=== PATIENT | female | born 1990 | race Caucasian/White ===

== ENCOUNTER 2021-10-13 03:43 | Emergency (ER) | payer MEDICAID, SELFPAY ==
[2021-10-13] VITALS (7 sets, daily range): BP systolic 124–159; BP diastolic 70–102; PULSE 74–107; RESP 15–18; TEMP 36.3–36.6; O2SAT 97–99; BMI 39.3
--- NOTE | 2021-10-13 03:45 | EX.ED.DYSGE1 ---
HPI History of Present Illness Chief Complaint: Suicidal Narrative Narrative: 31-year-old female here for suicidal ideation. History of schizophrenia, bipolar disorder and panic disorder. The patient states everything is corrupt everyone is after me. She states she is not on drugs. She denies any physical complaints. Denies any auditory visualizations. Denies any suicidal or homicidal ideation to me. Per police officers patient left her penitentiary and was found lying on the ground threatening to kill herself. Patient denies any attempt at hurting herself, cutting, ingestion of any kind. Denies any drug use at this time Old chart reviewed: Currently on haloperidol, lithium, Seroquel, trazodone, sertraline [facility] Medical History (Updated 10/13/21 @ 03:49 by Thierry Bear) Antisocial personality disorder Bipolar disorder Borderline personality disorder Polysubstance abuse Post traumatic stress disorder (PTSD) Schizophrenia Self mutilating behavior Suicidal ideation Suicide attempt by hanging Home Medications carbamazepine 200 mg tablet 600 mg PO QHS 10/13/21 [History Last Taken Unknown] chlorpromazine 50 mg tablet 50 mg PO QHS 10/13/21 [History Last Taken Unknown] clonazepam 1 mg tablet 1 mg PO DAILY PRN Anxiety 10/13/21 [History Last Taken Unknown] doxepin 150 mg capsule 150 mg PO QHS 10/13/21 [History Last Taken Unknown] Allergy/AdvReac Type Severity Reaction Status Date / Time alprazolam Allergy PT UNSURE Verified 10/13/21 03:45 OF REACTION lorazepam Allergy PT UNSURE Verified 10/13/21 03:45 OF REACTION Surgical History no surgical history Social History Smoking Status: Current every day smoker tobacco type: cigarettes ROS ROS ED Eyes Eyes: Denies other visual disturbances ENT ENT ED: Denies ear pain Cardiovascular Cardiovascular: Denies chest pain Respiratory/Chest Respiratory/Chest: Denies dyspnea Gastrointestinal Gastrointestinal: Denies abdominal pain Genitourinary Genitourinary ED: Denies dysuria Musculoskeletal Musculoskeletal: Denies joint pain Integumentary Denies rash Neurologic Neurologic: Denies dizziness, focal weakness, numbness, syncope or weakness Psychiatric Psychiatric: Denies homicidal ideation or suicidal ideation EXAM Physical Exam Narrative Exam Narrative: Nursing triage notes reviewed, Vital signs reviewed Constitutional: please see mdm HENT: MMM Eyes: Pupils equal round and reactive to light, Extraocular muscles intact Neck: No stridor, no JVD, full neck ROM Lungs: Clear to auscultation, No wheezing or rales. No increased work of breathing, no conversational dyspnea, no accessory muscle use, no nasal flaring. No respiratory distress noted Heart: Regular rate and rhythm, No murmurs, No rubs and No gallops, 2+ distal pulses (radial, femoral, posterior tibial) in all extremities Abdomen: Soft, there is no tenderness, rigidity, rebound or guarding, no obvious peritoneal signs, no palpable pulsatile abdominal masses, no auscultated abdominal bruit : No CVAT Extremities: No edema Neuro: No focal neurological deficits, cranial nerves II through XII intact, 5/5 strength in all extremities. Intact sensation to light touch in all extremities, 2+ reflexes bilateral patella dens. Normal gait. No ataxia. Skin: Well-healed, old appearing ligature burnett on the neck, self-injurious burnett bilateral upper extremities Psych: Pressured speech, tangential thoughts, appears manic Const Vital Signs: 10/13/21 03:45 10/13/21 05:30 10/13/21 05:59 Temperature 97.4 F L 97.4 F L Temperature Source Temporal Temporal Pulse Rate 106 H 74 Respiratory Rate 18 16 15 Blood Pressure 159/102 H 124/76 H Blood Pressure Mean 121 92 Pulse Ox 97 99 Oxygen Delivery Method Room Air Room Air 10/13/21 06:14 Temperature Temperature Source Pulse Rate Respiratory Rate 17 Blood Pressure 134/80 H Blood Pressure Mean 98 Pulse Ox 97 Oxygen Delivery Method Room Air MDM MDM MDM Narrative Medical decision making narrative: 31-year-old female with pmhx significant for bipolar disorder, schizophrenia presents with suicidal ideation with plan. She appears decompensated and manic. Patient was initially mildly tachycardic otherwise hemodynamically stable and afebrile. Exam was unremarkable. Obtain medical clearance labs including urine tox screen, alcohol, EKG. EKG showed no evidence of arrhythmia or other abnormality. Labs are unremarkable for intoxication or other abnormality that would preclude further psychiatric evaluation. Gave the patient oral Haldol, Ativan, Benadryl to treat her manic state with improvement in agitation. The patient is medically cleared. We will communicate with our behavioral health specialist to further ascertain if the patient requires admission versus discharge. Patient was turned over to a.m. physician in stable, calm condition pending behavioral health evaluation and final disposition Lab Data Attestation: I reviewed the patient's lab results. Lab results narrative: CBC without leukocytosis, severe anemia, no thrombocytopenia. BMP without evidence of significant electrolyte abnormalities, no anion gap, no acute kidney injury. Urine tox screen negative Urine negative EtOH negative Acetaminophen, salicylate level negative COVID negative Labs: Laboratory Results - last 24 hr 10/13/21 10/13/21 10/13/21 03:55 04:12 04:12 WBC 10.9 RBC 4.62 Hgb 12.7 Hct 40.8 MCV 88.3 MCH 27.5 MCHC 31.1 L RDW Std Deviation 45.8 H RDW Coeff of Adis 14.3 Plt Count 260 MPV 10.6 Immature Gran % (Auto) 0.600 Neut % (Auto) 68.1 Lymph % (Auto) 23.8 Leslie % (Auto) 6.2 Eos % (Auto) 0.9 Baso % (Auto) 0.4 Absolute Neuts (auto) 7.4 Absolute Lymphs (auto) 2.59 Nucleated RBC % 0 Sodium 137 Potassium 3.9 Chloride 109 H Carbon Dioxide 21.0 Anion Gap 7 BUN 11 Creatinine 0.54 L Estim Creat Clear Calc 121.58 Est GFR (MDRD) Af Amer 171 Est GFR (MDRD) Non-Af 141 BUN/Creatinine Ratio 20.4 H Glucose 108 H Calcium 8.5 Serum , Qual Salicylates Urine Opiates Screen NEGATIVE Urine Methadone Screen NEGATIVE Acetaminophen Ur Barbiturates Screen NEGATIVE Ur Phencyclidine Scrn NEGATIVE Ur Amphetamines Screen NEGATIVE MDMA (Ecstasy) Screen NEGATIVE U Benzodiazepines Scrn NEGATIVE Urine Cocaine Screen NEGATIVE U Cannabinoids Screen NEGATIVE Ur Drug Screen Comment Ethyl Alcohol 10/13/21 10/13/21 10/13/21 04:12 04:12 04:12 WBC RBC Hgb Hct MCV MCH MCHC RDW Std Deviation RDW Coeff of Adis Plt Count MPV Immature Gran % (Auto) Neut % (Auto) Lymph % (Auto) Leslie % (Auto) Eos % (Auto) Baso % (Auto) Absolute Neuts (auto) Absolute Lymphs (auto) Nucleated RBC % Sodium Potassium Chloride Carbon Dioxide Anion Gap BUN Creatinine Estim Creat Clear Calc Est GFR (MDRD) Af Amer Est GFR (MDRD) Non-Af BUN/Creatinine Ratio Glucose Calcium Serum , Qual NEGATIVE Salicylates 4.1 Urine Opiates Screen Urine Methadone Screen Acetaminophen < 2.0 L Ur Barbiturates Screen Ur Phencyclidine Scrn Ur Amphetamines Screen MDMA (Ecstasy) Screen U Benzodiazepines Scrn Urine Cocaine Screen U Cannabinoids Screen Ur Drug Screen Comment Ethyl Alcohol 3.0 EKG Initial EKG: Comments: Normal sinus rhythm, normal axis, normal intervals, ST or T wave changes to suggest myocardial ischemia, no evidence of WPW, Brugada, ARVD. Discharge Plan Triage Chief Complaint: Suicidal ED Provider: Fidel Mazariegos Dx/Rx/DC Orders Prescriptions: No Action clonazepam 1 mg Tablet 1 mg PO DAILY PRN (Reason: Anxiety) carbamazepine 200 mg Tablet 600 mg PO QHS chlorpromazine 50 mg Tablet 50 mg PO QHS doxepin 150 mg Capsule 150 mg PO QHS Primary Care Provider: Care Physician,No Primary Referrals: Care Physician,No Primary [Primary Care Provider] -
--- NOTE | 2021-10-13 03:57 | EKG12_ITS ---
Test Reason : MEDICAL CLEARANCE Blood Pressure : / mmHG Vent. Rate : 091 BPM Atrial Rate : 091 BPM P-R Int : 172 ms QRS Dur : 086 ms QT Int : 374 ms P-R-T Axes : 063 044 057 degrees QTc Int : 460 ms Normal sinus rhythm Normal ECG Confirmed by NERISSA PENNY, ДМИТРИЙ ([id number]), continuity editor ROYAL HANNA ([id number]) on 10/14/2021 2:12:08 PM Referred By: TONY Confirmed By:TIARA MULTANI MD
[2021-10-13] MEDS: Haloperidol 5 MG Tablet PO (04:03)
[2021-10-13] MEDS: LORazepam 1 MG Tablet 2 MG PO (04:03)
[2021-10-13] MEDS: DiphenhydrAMINE 25 MG Capsule 50 MG PO (04:12)
[2021-10-13 04:22] LABS: Absolute Lymphocyte Count 2.59 X10^3/uL (0.83-4.51); Absolute Neutrophil Count 7.4 X10^3/uL (2.0-7.7); Basophil# 0.04 X10^3/uL; Basophil% 0.4 % (0-1); Eosinophils% 0.9 % (0-5); Hematocrit 40.8 % (37-47); Hemoglobin 12.7 g/dL (12.0-15.0); Lymphocyte # 2.59 X10^3/ul (0.83-4.51); Lymphocyte % 23.8 % (19-41); Mean Corp Hgb Conc 31.1 g/dL (32-36); Mean Corpuscular Hgb 27.5 pg (27.0-32.0); Mean Corpuscular Volume 88.3 fL (81-99); Mean Platelet Vol. 10.6 fl (6.2-12.0); Monocyte# 0.67 X10^3/uL; Monocyte% 6.2 % (0-10); NRBC Flagged by Analyzer 0 % (0-5); Neutrophil # 7.42 X10^3/uL (2.7-7.7); Neutrophil % 68.1 % (47-70); Platelet Count 260 K/mm3 (150-450); RBC Distribution Width CV 14.3 % (11.6-14.6); RBC Distribution Width SD 45.8 fl (35.1-43.9); Red Blood Count 4.62 M/mm3 (4.2-5.4); White Blood Count 10.9 K/mm3 (4.4-11.0)
[2021-10-13 04:37] LABS: Anion Gap 7 (5-15); BUN 11 mg/dL (7-18); BUN/Creat Ratio 20.4 RATIO (10-20); Calcium,Total 8.5 mg/dL (8.5-10.1); Chloride 109 mmol/L (98-107); Creatinine, Serum 0.54 mg/dL (0.55-1.02); EST Glomerular Filtration Rate 141 mL/min (>60); Est Glom Filt Rate - Afr Amer 171 mL/min (>60); Estimated Creatinine Clearance 121.58 ml/min; Glucose 108 mg/dL (74-106); Potassium 3.9 mmol/L (3.5-5.1); Sodium Level 137 mmol/L (136-145)
[2021-10-13 04:39] LABS: Amphetamine Urine VISTA NEGATIVE (<1000 ng/mL); Barbiturate Urine VISTA NEGATIVE (< 200 ng/mL); Benzodiazepine Urine VISTA NEGATIVE (< 200 ng/mL); Cocaine Urine VISTA NEGATIVE (< 300 ng/mL); Ecstacy Urine VISTA NEGATIVE (< 500 ng/mL); Methadone Urine VISTA NEGATIVE (< 300 ng/mL); PCP Urine VISTA NEGATIVE (< 25 ng/mL); THC Urine VISTA NEGATIVE (< 50 ng/mL); Vista UDS pH Range 7
[2021-10-13 04:48] LABS: Internal QC Validated? YES +Cl - CLEAR BKGD; Pregnancy, Serum, hCG Quali. NEGATIVE Negative
[2021-10-13 05:00] LABS: Acetaminophen (Tylenol) Level < 2.0 ug/mL (10.0-30.0); Salicylate 4.1 mg/dL (2.8-20.0)
--- NOTE | 2021-10-13 05:05 | NURSING ---
CALLED CRISIS AT [phone]
--- NOTE | 2021-10-13 05:22 | ED.RN ---
crisis aware of the patient at this time, chart faxed to them at this time
--- NOTE | 2021-10-13 06:01 | ED.RN ---
Phone number for esvin in chart. She is a person who the patient trusts at the long term and patient wanted to be sure we had the number, at the long term.
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
--- NOTE | 2021-10-13 14:05 | CM.ED ---
Patient was inquiring about leaving and TRAVIS met with her and explained that patient is pink slip and can not leave. Patient stated that this continuity writer was setting her up an she is not going back to [facility]. Patient continued to esculate however, the agitation was based on paranoia related to this continuity writer setting her up thus SW left the room. Patient had indicated that her belongings were at the fdc and she wanted her belongings. TRAVIS advised that this continuity writer will call about her belongings. TRAVIS called Aundrea at [facility] and left voice mail message. TRAVIS received call back from Aundrea at [facility]. She agreed to bring patient's belongings to the ED by 2:30 today and then she will speak to patient, per patient's request. Staff updated. TRAVIS received call from Bryan at [facility]. He asked how patient was doing and SW provided update including when the emergency meds were last given to her. Bryan said that if medication like ativan or haldol are given it would be 2-4 hours till patient could leave due to the administration of the medication and it's affect. Bryan said that the accepting MD is Vida and the patient is going to the [facility] an RN to RN is [phone]. TRAVIS updated RN and rim fire charger operator. Offal Baler called for transport which will be in 2-3 hours. TRAVIS called No at [facility] and provided her with update on patient going to [facility] in [place] and the phone number for [facility]. TRAVIS called patient's SERVICE CREW SUPERVISOR Rosana Hughes and updated her regarding patient and the plan of discharge. Plan: [facility] Vanesa ROBLES called Crisis and advised that patient was assessed and placed at [facility].
--- NOTE | 2021-10-13 14:07 | NURSING ---
PHYSICIANS CALLED. ETA OF 2-3 HOURS.
--- NOTE | 2021-10-13 14:25 | ED.RN ---
Report given to Winnie DRISCOLL at [place].
[2021-10-13] MEDS: Diphenoxylate/Atrop 1 Tablet PO (17:03)
--- NOTE | 2021-10-13 17:29 | ED.RN ---
PT DEMANDING TO GO OUTSIDE TO SMOKE. THIS RN OFFERED PT A NICOTINE PATCH. PT REFUSES
[2021-10-13] MEDS: clonazePAM 1 MG Tablet PO (18:40)
== END 2021-10-13 20:18 ==
PROVIDERS: Emergency Provider Emergency Medicine; Visit Provider Emergency Medicine
DX: R45.851 Suicidal ideations (principal); F31.9 Bipolar disorder, unspecified; F60.2 Antisocial personality disorder; F17.210 Nicotine dependence, cigarettes, uncomplicated; F43.10 Post-traumatic stress disorder, unspecified
CPT/HCPCS: 80048; 80307; 80329; 82077; 84703; 85025; 87426; 93005; 99285; G0480